=== PATIENT | female | born 1955 | race Caucasian/White ===

== ENCOUNTER 2021-01-26 09:42 | Day surgery (SDC) | payer MEDICARE ==
[~2021-01-26] VITALS: Ht 157.5 cm; Wt 90.9 kg
[~2021-01-26 09:42] MED LIST: HYDROCHLOROTHIA50 MG PO; METFORMIN HCL500 M2 PO; NEURONTIN400 MG PO; PROZAC40 MG PO
--- NOTE | 2021-01-26 13:37 | NUR ---
01/26/21 Ivette7 Mildred Londono 1324-PATIENT ARRIVED TO PACU ON 6L MASK NONAROUSABLE RN DOING JAW THRUST TO MAINTAIN OPEN AIRWAY. DRESSINGS INTACT TO BILATERAL BREASTS. IVF INFSUING. SR. 1334-RN CONTINUING TO DO JAW THRUST AND PATIENT AROUSING TO VERBAL STIMULI EYES CLOSED NOT FOLLOWING COMMANDS RAISING LEFT ARM TO FACE AND TRYING TO RUB. PATIENT VERY DROWSY FALLS BACK ASLEEP. 6L MASK MAINTAINING OWN AIRWAY.
[2021-01-26] MEDS ORDERED: ACETAMINOPHEN500 MG PO (13:39)
[2021-01-26] MEDS ORDERED: IBUPROFEN600 MG PO (13:39)
[2021-01-26] MEDS ORDERED: OXYCODON-ACETA1 EAC2 PO (13:39)
--- NOTE | 2021-01-26 14:16 | NUR ---
PATIENT BACK IN DAY SURGERY ROOM FROM PACU. RATES PAIN 3/10 IN LEFT BREAST. LEFT BREAST DRESSIN CDI. RIGHT BREST DRESSING CDI. IV SITE WNL. SCDs ON. PATIENT C/O THIRST. GIVEN ICE WATER AND SALTINE CRACKERS. CALL LIGHT WITHIN REACH.
--- NOTE | 2021-01-26 15:20 | NUR ---
1515: PATIENT RATES PAIN 5/10 IN LEFT BREAST. MEDICATED WITH 1 TABLET OF PERCOCET. TOLERATED CRACKERS, JUICE, AND WATER. PATIENT ASSISTED OOB AND TO BATHROOM. VOID WITHOUT DIFFICULTY. GAIT STEADY TO AND FROM BATHROOM. IV DC'D WNL. TIP INTACT. DRESSING APPLIED. PATIENT GETTING DRESSED WITH HELP FROM .
--- NOTE | 2021-01-26 15:40 | NUR ---
1535: PATIENT DISCHARGED TO HOME WITH VIA WHEELCHAIR.
--- NOTE | 2021-01-27 13:52 | OR ---
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 PROCEDURES: 1. Left needle localized excisional breast biopsy (upper outer quadrant). 2. Right needle localized excisional breast biopsy (upper outer quadrant). ANESTHESIA: General LMA, Fish Rodriguez CRNA. INDICATIONS: This 65-year-old white woman is a patient of Leslee Beck in [place], [place], who underwent mammogram bilaterally, which showed 2 lesions, 1 in each side considered BI-RADS category 4. Both lesions were biopsied by Dr. Garcia with image-guided technology (ultrasound), the left one at 12 o'clock, the right side at about 11 o'clock. The right-sided lesion showed focal nodular sclerotic stroma with surrounding chronic inflammation and fragments of papillary epithelial structures with ductal hyperplasia, negative for malignancy. The left side lesion was considered an intraductal papilloma with columnar cell hyperplasia and focal suspicion for atypia. On the basis of these histologic findings and based on limited biopsy by image guidance technique, wide resection has been recommended. The risk of bleeding, infection, cosmetic deformity, and other unforeseen complications were reviewed in detail. She understands and wished to proceed. FINDINGS: Both lesions were well localized by Dr. Garcia, radiologist. Excision of them with specimen radiograph showed that the needle was well positioned within the area in question and wide resection of the offending abnormalities noted. DESCRIPTION OF PROCEDURE: The patient was received from the radiology suite and taken to the operating room where she was given a general anesthetic by LMA technique. Preoperative antibiotic Ancef was given. Sequential compression device stockings were used and heparin subcutaneously Electronically Signed By: BONI OSBORN MD 01/27/21 1352 PATIENT NAME: ELISHA HARMON OPERATIVE REPORT DATE OF : 53 REPORT #: [id number] PHYSICIAN: BONI OSBORN MD PCP: LESLEE BECK PA-C REPORT IS CONFIDENTIAL AND NOT TO BE RELEASED WITHOUT AUTHORIZATION [facility] [address], [place] [address] Signed administered. The dressings on each side were removed as was the foam tape associated with needles. Both needles emanated from the central aspect of each breast superiorly. Review of the images was undertaken. A spray Betadine prep solution was used and the areas were sterilely draped. The operation was begun on the left side. A marker was used to define the areolar margin. An incision was made in this area and a flap was elevated superiorly to allow for delivery of the wire into the wound. Once accomplished, the parenchyma was grasped with an Allis clamp and using electrocautery, primarily wide resection was undertaken following the localizing wire as a guide. Wide resection was undertaken and the specimen was marked, a short stitch superiorly and a long stitch lateral. Specimen radiograph was undertaken and later reported as incorporating the offending lesion in question well within the biopsy specimen. Irrigation was undertaken. Electrocautery was used for hemostasis. A few areas were oversewn with 2-0 Vicryl for hemostasis as well. The parenchyma was reapproximated with interrupted 2-0 Vicryl and the skin was closed with running subcuticular 3-0 Vicryl. Steri-Strips were applied as was an Acticoat adhesive silver sponge dressing. Attention was then turned towards the right side. With similar technique, a curvilinear incision was made in the areolar margin and the wire delivered into the wound, grasped with an Allis clamp and the parenchyma excised, it was a bit more superficial. The specimen was similarly marked with a long stitch lateral and a short stitch superiorly. Specimen radiograph was obtained confirming the offending lesion within the resected specimen and in good position. The parenchyma was reapproximated after irrigation and hemostasis with electrocautery and the skin was closed with running subcuticular 3-0 Vicryl. Steri-Strips were applied as were silver sponge dressing (Acticoat). The patient was ultimately extubated and transferred to the recovery room in good condition having suffered no complication. Sponge, needle, and instrument counts were reported as correct x3. MD FABIAN Wagner/MODL /[id number] cc: Dr.Danielle [place]Le[place], [place] Electronically Signed By: BONI OSBORN MD 01/27/21 1352 PATIENT NAME: ELISHA HARMON OPERATIVE REPORT DATE OF : 53 REPORT #: [id number] PHYSICIAN: BONI OSBORN MD PCP: LESLEE BECK PA-C REPORT IS CONFIDENTIAL AND NOT TO BE RELEASED WITHOUT AUTHORIZATION [facility] [address] [place], [place] [address] Signed Copies: ~ Electronically Signed By: BONI OSBORN MD 01/27/21 1352 PATIENT NAME: ELISHA HARMON OPERATIVE REPORT DATE OF : 53 REPORT #: [id number] PHYSICIAN: BONI OSBORN MD PCP: LESLEE BECK PA-C REPORT IS CONFIDENTIAL AND NOT TO BE RELEASED WITHOUT AUTHORIZATION
--- NOTE | 2021-02-02 18:43 | PATH ---
[facility] [place] [facility] [address], [place] [address] Signed SPECIMEN(S): A LEFT UPPER OUTER BREAST SPECIMEN(S): B RIGHT UPPER OUTER BREAST SPECIMEN SOURCE: A. LEFT UPPER OUTER BREAST B. RIGHT UPPER OUTER BREAST CLINICAL HISTORY: 65 year old female with bilateral breast biopsies in September 2020 demonstrating intraductal papilloma with questionable atypia on the left and detached papillary structures suggestive of an intraductal papilloma on the right. FINAL PATHOLOGIC DIAGNOSIS: A. Breast, left, upper outer quadrant, lumpectomy: - Intraductal papillomas (2 mm in greatest dimension). - Fibrocystic changes including usual ductal hyperplasia, cyst formation, apocrine metaplasia, and stromal fibrosis. - Duct ectasia. - Focal fibroadenoma (3 mm). - Microcalcifications associated with benign epithelium and stroma. - Negative for atypia or carcinoma. B. Breast, right, upper outer quadrant, lumpectomy: - Fibrocystic changes including usual ductal hyperplasia, cyst formation, and stromal fibrosis. - Duct ectasia. - Biopsy site changes. - Calcifications associated with benign epithelium and stroma. - Negative for atypia or carcinoma. COMMENT: Both lumpectomies were entirely submitted for histologic examination; no atypia or carcinoma is identified. NAL:cml:C2NR MICROSCOPIC EXAMINATION: Histologic sections of all submitted blocks are examined by light microscopy. These findings, together with the gross examination, support the pathologic diagnosis. GROSS DESCRIPTION: PATIENT NAME: ALIACalliCHARLINEOVIELISHA PATHOLOGY DATE OF : 53 REPORT #: [id number] PHYSICIAN: RIYA PATHOLOGY PCP: LESLEE BECK PA-C REPORT IS CONFIDENTIAL AND NOT TO BE RELEASED WITHOUT AUTHORIZATION [facility] [place] [facility] [address], [place] [address] Signed Two specimens are received in two containers, labeled "Elisha Grimes." A. The specimen, labeled "Elisha Grimes," and designated on the requisition "left upper outer quadrant breast biopsy," is received in formalin and consists of 38 gram oriented portion of yellow-maynard fibroadipose tissue that is 6.5 x 5.0 x 4.6 cm and has an inserted metal localization wire. A short suture is present and identifies the superior margin and a long suture identifies the lateral margin. The specimen is inked as follows: superior - blue; inferior - green; medial - red; lateral - orange; anterior - yellow; and posterior - black. The specimen is serially sectioned from medial to lateral into nine slices revealing approximately 80% of the specimen is a yellow-maynard greasy adipose tissue and 20% is a pink rubbery cystic fibrous tissue. No discrete mass lesions are grossly identified. Separate within the container is a 2.6 x 1.8 x 0.5 cm aggregate of yellow-maynard multilobulated adipose. The specimen is entirely submitted consecutively in 29 cassettes. Cassette summary: (A1-A4) slice one, medial soft tissue resection margin, perpendicular (A5-A7) slice two (A8-A10) slice three (A11-A13) slice four (A14-A17) slice five (A18-A20) slice six (A21-A23) slice seven (A24-A26) slice eight (A27-A28) slice nine, lateral soft tissue resection margin, perpendicular (A29) fibroadipose tissue separate within the container. Cold ischemia time: Eight minutes Approximate Formalin time: 12-24 hours. B. The specimen, labeled "Uri Grimes," and designated on the requisition "right upper outer quadrant breast biopsy," is received in formalin and consists of 25 gram oriented portion of yellow-maynard fibroadipose tissue that is 0.6 x 3.9 x 3.4 cm and has an inserted metal localization wire. A short suture is present and identifies the superior margin and a long suture identifies the lateral margin. The specimen is inked as follows: superior - blue; inferior - green; medial - red; lateral - orange; anterior - yellow; and posterior - black. The specimen is serially sectioned from superior to inferior into 11 slices revealing an area of induration that is 0.9 x 0.8 x 0.8 cm. The area of induration is present in slice two, 0.6 cm from the PATIENT NAME: ELISHA HARMON PATHOLOGY DATE OF : 53 REPORT #: [id number] PHYSICIAN: RIYA PATHOLOGY PCP: LESLEE BECK PA-C REPORT IS CONFIDENTIAL AND NOT TO BE RELEASED WITHOUT AUTHORIZATION [facility] [place] [facility] [address] [place] [id number] Signed anterior soft tissue margin, 0.2 cm from the posterior soft tissue margin, 1.1 cm from the superior soft tissue margin, 4.1 cm from the inferior soft tissue margin, 1.4 cm from the medial soft tissue margin, and 0.5 cm from the lateral soft tissue margin. Approximately 80% of the remaining specimen is a yellow-maynard greasy adipose tissue and 20% is a white-maynard rubbery fibrous tissue. Maintenance Helper sections are submitted in 10 cassettes. Cassette summary: (B1-B3) slice one, superior soft tissue resection margin, perpendicular (B4-B5) slice two (B6-B7) slice three (B8-B9) slice four (B10) slice 11, inferior soft tissue resection margin, perpendicular. Cold ischemia time: 14 minutes Approximate Formalin time: 12-24 hours. FB (under the direct supervision of a pathologist) Per request by Dr. Elias the remainder of part B is submitted as follows: B11-B12 bisected slice 5 B13-B14 bisected slice 6 B15-B16 bisected slice 7 B17-B19 bisected slice 8 (B17-B18 is a bivalved section) B20-B21 bisected slice 9 B22-B23 bisected slice 10 B24 remainder of slice 11 AI 02/01/21 12:22 PM The Gross Description was prepared using a voice recognition system. The report was reviewed for accuracy; however, sound-alike word errors, addition and/or deletions may occur. If there is any question about this report, please contact Client Services. PERFORMING LABORATORY: The technical component was performed by [employer], [address] [place] [id number] (Hard Tile Setter: Tabatha Aggarwal MD; CLIA# [id number]). [facility], [address] [place] [address] (CLIA# [id number]). Diagnostician: Kalyn Elias MD Pathologist Electronically Signed 02/02/2021 PATIENT NAME: ELISHA HARMON PATHOLOGY DATE OF : 53 REPORT #: [id number] PHYSICIAN: RIYA OLMSTEAD PCP: LESLEE BECK PA-C REPORT IS CONFIDENTIAL AND NOT TO BE RELEASED WITHOUT AUTHORIZATION [address] [place], [place] [address] Signed Copies: ~ PATIENT NAME: ELISHA HARMON PATHOLOGY DATE OF : 53 REPORT #: [id number] PHYSICIAN: RIYA OLMSTEAD PCP: LESLEE BECK PA-C REPORT IS CONFIDENTIAL AND NOT TO BE RELEASED WITHOUT AUTHORIZATION
== END 2021-01-26 15:35 | disposition home or self-care (01) ==
LOC: OPS 09:42 → DS 09:44 → MAM 11:00 → EDSTATUS 11:00 → OPS 11:00
PROVIDERS: ATTEND Surgery
PROC: 0HBV3ZX Excision of Bilateral Breast, Percutaneous Approach, Diagnostic (ICD-10-PCS; principal; 2021-01-26 12:00)
DX: D24.2 Benign neoplasm of left breast (principal); N60.42 Mammary duct ectasia of left breast; N60.41 Mammary duct ectasia of right breast; N60.32 Fibrosclerosis of left breast; N60.31 Fibrosclerosis of right breast; N60.02 Solitary cyst of left breast; N60.01 Solitary cyst of right breast; N62 Hypertrophy of breast; I10 Essential (primary) hypertension; E11.9 Type 2 diabetes mellitus without complications; E78.00 Pure hypercholesterolemia, unspecified; J45.909 Unspecified asthma, uncomplicated; G47.33 Obstructive sleep apnea (adult) (pediatric); M19.90 Unspecified osteoarthritis, unspecified site; K58.9 Irritable bowel syndrome, unspecified; E04.1 Nontoxic single thyroid nodule; Z79.84 Long term (current) use of oral hypoglycemic drugs; Z79.899 Other long term (current) drug therapy; Z87.442 Personal history of urinary calculi
CPT/HCPCS: 00404; 19281; 19282; 76098; 88305; 88307; J0690; J1100; J1644; J1885; J2001; J2405; J2704; J3010; J7121